=== PATIENT | female | born 1945 | race Caucasian/White ===

== ENCOUNTER 2019-03-13 08:50 | Day surgery (SDC) | payer OTHER, MEDICARE ==
[2019-03-13 08:49] LABS: Urine Appearance CLEAR; Urine Bilirubin NEGATIVE (NEG); Urine Blood TRACE (NEG); Urine Color YELLOW; Urine Glucose NEGATIVE (NEG); Urine Protein NEGATIVE (NEG); Urine Urobilinogen 0.2 mg/dL (0.2-1.0); Urine pH 5.5 (5.0-7.0)
[~2019-03-13 08:50] MED LIST: FENTANYL CITR 100 MCG/2 ML ONE; LIDOCAINE 1% MPF 5 ML VIAL ONE; PROPOFOL 200 MG/20 ML VIAL IV ONE
[2019-03-13 08:57] LABS: Absolute Lymphocytes (CBC) 1.7 K/uL (0.7-4.9); Basophils % 0.4 % (0-1.3); Hematocrit 41.1 % (36.0-45.0); Lymphocytes % 34.7 % (15.3-44.8); MPV 8.5 fL (7.6-11.3); RBC Red Blood Cell Count 4.72 M/uL (3.86-4.86)
[2019-03-13] MEDS ORDERED: Ringers Lactate 1,000 ML IV ONE (08:59)
[2019-03-13] MEDS ORDERED: CEFAZOLIN/SWI 1gm 1 GM/10 ML SYR ONE (08:59)
--- NOTE | 2019-03-13 09:11 | RAD REPORT ---
EXAM DESCRIPTION: RAD - Chest Pa And Lat (2 Views) - 03/13/2019 8:49 am CLINICAL HISTORY: preop Chest pain. COMPARISON: No comparisons FINDINGS: The lungs are clear. The heart is normal in size. No displaced fractures. IMPRESSION: No acute or concerning finding suspected.
--- OUTSIDE RECORDS SUMMARY | 2019-03-13 09:14 | XMS REPORT ---
:1945 Author Organization [employer] Care Team Providers Name Role Phone Ramya Kruger Provider Role Unavailable Allergies No Known Allergies Problems Problem Type Condition Code Onset Dates Condition Status Problem Hypercholesteremia E78.00 Active Problem Benign essential HTN I10 Active Problem Fatigue R53.83 Active Problem Encounter for immunization Z23 Active Problem Hypertensive heart disease without I11.9 Active heart failure Problem Benign head tremor G25.0 Active Problem Infected finger L08.9 Active Problem Asthma J45.909 Active Problem Hypothyroidism E03.9 Active Problem Sleep disorder G47.9 Active Problem Anxiety F41.9 Active Problem Prediabetes R73.03 Active Problem Chronic GERD K21.9 Active Problem Palpitations R00.2 Active Problem Asymptomatic PVCs I49.3 Active Problem Fecal incontinence R15.9 Active Problem Depression with anxiety F41.8 Active Problem Low back pain M54.5 Active Problem Tinnitus H93.19 Active Problem Irritable bowel syndrome without K58.9 Active diarrhea Problem Allergic rhinitis, seasonal J30.2 Active Medications No Known Medications Results No Known Results Summary Purpose [employer]Clinical[employer] Submission
[2019-03-13 09:19] LABS: Urine Bacteria <20 /HPF (<20); Urine Microscopic Reflex ORDER UMIC; Urine RBC NONE SEEN /HPF (NONE SEEN)
[2019-03-13 09:20] LABS: Urine Culture Reflex Order REFLEXED; Urine Mucus LIGHT /HPF (NONE SEEN)
[2019-03-13] MEDS ORDERED: ONDANSETRON 4 MG/2 ML VIAL ONE (09:30)
--- NOTE | 2019-03-13 09:30 | RAD REPORT ---
EXAM DESCRIPTION: RAD - Hand Left 3 View - 03/13/2019 8:49 am CLINICAL HISTORY: preop Finger pain and swelling COMPARISON: No comparisons FINDINGS: Moderate multi joint arthritic changes are noted in the hand. Radiocarpal arthritic change s are present. No acute fracture or dislocation evident.
[2019-03-13] MEDS: MORPHINE 4 MG/ML SYR ONE ×3 (10:12→10:22)
[2019-03-13 10:32] VITALS: O2SAT 98
[2019-03-13 10:48] VITALS: BP 157/81; TEMP 96.7
[2019-03-13] MEDS ORDERED: ONDANSETRON 4 MG (ODT) TAB ONE (11:38)
--- NOTE | 2019-03-13 20:45 | OP ---
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 Procedure: Removal of the nail plate. Anesthesia: General. Procedure In Detail: After satisfactory induction of general anesthesia, the hand was prepped with B etadine scrub, Betadine paint, dry sterile drapes applied in usual manner. The arm was elevated and exsanguinated with an Esmarch. Tourniquet inflated to 250 mmHg and placed on the OR table. A perios teal elevator was used to remove the nail plate. There were no signs of infection. All of that are in the eponychium. She has a history of previous paronychia. Plate was removed, the wound was jet l avaged and irrigated with dilute Betadine solution. Tourniquet released. Dressing of Xeroform, 2 in Dashawn. The patient tolerated the procedure well and returned to recovery. CARLIN/GILMAR Voice ID: [id number] Report ID: [id number]
--- NOTE | 2019-03-17 16:58 | EKG ---
Test Date: 2019-03-13 Test Time: 08:22:10 Rotary Slicing Machine Operator: KELLY MEASUREMENT RESULTS: Intervals: Rate: 72 LA: 170 QRSD: 78 QT: 374 QTc: 409 Reyno: P: 70 LA: 170 QRS: 54 T: 64 INTERPRETIVE STATEMENTS: Sinus rhythm with occasional premature ventricular complexes Otherwise normal ECG No previous ECG available for comparison Electronically Signed On 03-17-19 16:55:52 CDT by Quinten Moore
== END 2019-03-13 12:05 | disposition home or self-care (01) ==
LOC: OR 08:50
PROVIDERS: ATTEND Specialist
PROC: 0HDQXZZ Extraction of Finger Nail, External Approach (ICD-10-PCS; principal; 2019-03-13 09:00)
DX: L03.012 Cellulitis of left finger (principal); I10 Essential (primary) hypertension; E07.9 Disorder of thyroid, unspecified; Z88.3 Allergy status to other anti-infective agents; Z88.6 Allergy status to analgesic agent
CPT/HCPCS: 93005; 87088; 85025; 87086; 36415; 88312; 88304; 88311; 71046; 73130; 11730; J2704; J3010; J0690; J2405; 81003; 81015; 88305

== ENCOUNTER 2021-11-28 21:40 | Emergency (ER) | payer OTHER, MEDICARE ==
--- OUTSIDE RECORDS SUMMARY | 2021-11-28 21:44 | XMS REPORT | Continuity of Care Document ---
:1945 Author Organization [facility] t Address [address] [place] [address] Care Team Providers Name Role Phone ESTELA CAPUTO Primary Care Physician Unavailable Slick Attending Clinician Unavailable Sarah ZARAGOZA Attending Clinician Unavailable AYANA Attending Clinician Unavailable Ayana CIA AGENT Attending Clinician Doctor Unassigned, Name Attending Clinician Unavailable Sarah Zaragoza MD Attending Clinician Only, Test Attending Clinician Unavailable Sarah ZARAGOZA Admitting Clinician Unavailable AYANA Admitting Clinician Unavailable Sarah Zaragoza MD Admitting Clinician Payers Payer Name Policy Type Policy Number Effective Date Expiration Date S waldo MEDICARE PART A \\T\\ [id number] 2009 B 00:00:00 [facility] [id number] 2019 MEDICARE SUPPLEMENT 00:00:00 Problems Condition Condition Condition Status Onset Resolution Last Treating Co mments Source Name Details Category Date Date Treatment Clinician Date No known No known Disease Unive rs active active ity of problems problems [facility] Allergies, Adverse Reactions, Alerts Allergy Allergy Status Severity Reaction(s) Onset Inactive Treating Comm ents Source Name Type Date Date Clinician codine Adverse Active vomiting Common Reaction [facility] PredniSO Adverse Active chest pain Com mon NE Reaction [facility] Ventolin Adverse Active numbness in Co mmon HFA Reaction tongue [facility] Levoflox Adverse Active hives, Common acin Reaction difficulty Spir it swallowing [facility] NO KNOWN Drug Active Univers ALLERGIE Class ity of S [facility] Social History Social Habit Start Date Stop Date Quantity Comments Source Exposure to Not sure University of SARS-CoV-2 [facility] (event) Branch Alcohol intake 2021-06-08 2021-06-08 Ex-drinker [facility] 00:00:00 00:00:00 (finding) [facility] Tobacco use and 2020-02-20 2020-02-20 Never used Universit y of exposure 00:00:00 00:00:00 [facility] Sex Ass[birth year] Universit y of 00:00:00 00:00:00 [facility] Smoking Status Start Date Stop Date Source Never smoker [facility] Medications Ordered Filled Start Stop Current Ordering Indication Dosage Frequency Signature Comments Components Source Medication Medication Date Date Medication? Clinician (SIG) Name Name benzonatate 2020-07 No 100mg 100 mg, U nivers (TESSALON 08-10 Oral, ity of PERLES) 03:30: 03:12 ONCE, 1 [place] capsule 100 00 :00 dose, On Medi jimmy mg Wed Branch 06/08/21 at 2130, CELIA methylpredn 2020-07 No 125mg 125 mg, IV Univers isolone sod 08-10 Piggyback, i ty of succ 03:30: 03:12 ONCE, 1 [place] (SOLU-MEDRO 00 :00 dose, On Medi jimmy L) [facility] Branch injection 06/08/21 at 125 mg 2130, STAT methylPREDN 2020-07 Yes [id number] Take by Univers ISolone 2-08 mouth ity of (MEDROL, 00:00: SEE-INSTRU Chriss as DIMAS,) 4 mg 00 CTIONS. Medica l tablets follow Branch package directions benzonatate 2020-07 Yes [id number] 100mg Take 1 Univers 100 mg 2-08 capsule by ity of capsule 00:00: mouth 3 [place] 00 (three) Medical times Branch daily as needed for Cough. albuterol 2020-07 Yes [id number] 2{puff} Inhale 2 Univers 90 2-08 Puffs ity of mcg/actuati 00:00: every 4 Chriss as on inhaler 00 (four) Medical hours as Branch needed for Wheezing or Shortness of Breath. Levothyroxi 2020-0 Yes Take by Un malachi ne 50 mcg - mouth. ity of capsule 14:23: Medical Branch hydroCHLORO 2020-0 Yes 12.5mg Take 12.5 Univers thiazide 9-17 mg by ity of 12.5 mg 14:23: mouth [place] capsule 01 daily. Medical Branch L.acid/B.bi 2020-0 Yes Take by Un malachi fidum/B.ani 03-18 mouth. ity of mal/FOS 14:23: [place] (PROBIOTIC Medical COMPLEX Branch ORAL) Potassium 2020-0 Yes Take by [facility] ers 99 mg Tab 03-18 mouth. ity of 14:23: [place] [facility] Magnesium 2020-0 Yes Take by [facility] ers 250 mg Tab 03-18 mouth. ity of 14:23: [place] [facility] mv-mn/iron/ 2020-0 Yes Take by Un malachi folic 03-18 mouth. ity of acid/herb 14:23: [place] 01 Medical (VITAMIN D3 Branch COMPLETE ORAL) water for 2019-0 Yes PRN, Univers irrigation 03-18 Starting ity o f irrigation 12:19: Brittanie [place] solution 00 03/18/20 at Medic al 0719, Branch Until Discontinu ed, Routine, Intra-op simethicone 2020-0 Yes PRN, [facility] s (GAS RELIEF 03-18 Starting ity of (SIMETHICON 12:18: Brittanie [place] E)) 40 00 03/18/20 at Medical mg/0.6 mL 0718, Branch drops Until Discontinu ed, Routine, Intra-op lactated 2019-0 2020- No 1000mL at 20 [facility] rs ringers IV 03-18-17 mL/hr, ity of infusion 12:15: 12:15 1,000 mL, Chriss as 1,000 mL 00 :00 IV Medical Infusion, Branch ONCE, 1 dose, Brittanie 03/18/20 at 0715, Routine, DSU Pre-op Levothyroxi 2020-0 Yes Take by Un malachi ne 50 mcg - mouth. ity of capsule 09:23: [place] Medical [facility] hydroCHLORO 2020-0 Yes 12.5mg Take 12.5 Univers thiazide 9-17 mg by ity of 12.5 mg 09:23: mouth [place] capsule 01 daily. Medical Branch L.acid/B.bi 2020-0 Yes Take by Un malachi fidum/B.ani 9-17 mouth. ity of mal/FOS 09:23: [place] (PROBIOTIC 01 Medical COMPLEX Branch ORAL) Potassium 2020-0 Yes Take by Univ ers 99 mg Tab 9-17 mouth. ity of 09:23: [place] [facility] Magnesium 2020-0 Yes Take by Univ ers 250 mg Tab 9-17 mouth. ity of 09:23: [place] Medical [facility] mv-mn/iron/ 2020-0 Yes Take by Un malachi folic 9-17 mouth. ity of acid/herb 09:23: [place] 190 Medical (VITAMIN D3 Branch COMPLETE ORAL) Levothyroxi 2020-0 Yes Take by Un malachi ne 50 mcg 9-17 mouth. ity of capsule 09:23: [place] Medical [facility] hydroCHLORO 2020-0 Yes 12.5mg Take 12.5 Univers thiazide 9-17 mg by ity of 12.5 mg 09:23: mouth [place] capsule 01 daily. Medical Branch L.acid/B.bi 2020-0 Yes Take by Un malachi fidum/B.ani 9-17 mouth. ity of mal/FOS 09:23: [place] (PROBIOTIC 01 Medical COMPLEX Branch ORAL) Potassium 2020-0 Yes Take by Univ ers 99 mg Tab 9-17 mouth. ity of 09:23: [place] Medical [facility] Magnesium 2020-0 Yes Take by Univ ers 250 mg Tab 9-17 mouth. ity of 09:23: [place] [facility] mv-mn/iron/ 2020-0 Yes Take by Un malachi folic 9-17 mouth. ity of acid/herb 09:23: [place] 190 Medical (VITAMIN D3 Branch COMPLETE ORAL) Metronidazo Metronidazo 2020-0 2020- No Ramya 1 tablet Common le le 02-26 [place] [facility] 00:00: 00:00 - CHI 00 :00 [facility] L.acid/B.bi 2020-0 Yes Take by Un malachi fidum/B.ani 8-21 mouth. ity of mal/FOS 13:29: [place] (PROBIOTIC 27 Medical COMPLEX Branch ORAL) Potassium 2020-0 Yes Take by Univ ers 99 mg Tab 8-21 mouth. ity of 13:29: [place] [facility] Magnesium 2020-0 Yes Take by Univ ers 250 mg Tab 8-21 mouth. ity of 13:29: [address] Levothyroxi Yes Take by Un malachi ne 50 mcg 8-21 mouth. ity of capsule 13:29: [address] hydroCHLORO Yes 12.5mg Take 12.5 Univers thiazide 8-21 mg by ity of 12.5 mg 13:29: mouth [place] capsule 27 daily. Medical Branch ProAir HFA ProAir HFA Yes Ramya 1 puff as Common 07-10 [place] needed Spirit 00:00: - CHI 00 [facility] Magnesium Magnesium Yes Ramya as Comm on [place] directed [facility] Potassium Potassium Yes Ramya 1 tablet Common [place] [facility] Probiotic Probiotic Yes Ramya as Comm on [place] directed [facility] Hydrochloro Hydrochloro Yes Ramya TAKE ONE Common thiazide thiazide [place] TABLET BY S pirit MOUTH ONCE - CHI DAILY [facility] Albuterol Albuterol Yes Ramya 3 ml as C ommon Sulfate Sulfate [place] needed [facility] Levothyroxi Levothyroxi Yes Ramya TAKE ONE Common ne Sodium ne Sodium [place] TABLET BY Spirit MOUTH ONCE - CHI DAILY [facility] Vital Signs Vital Name Observation Time Observation Value Comments Source Heart rate 2021-06-09 03:17:00 76 /min [facility] Respiratory rate 2021-06-09 03:17:00 18 /min [facility] Oxygen saturation in 2021-06-09 03:17:00 96 /min [facility] Arterial blood by [facility] Pulse oximetry Branch Systolic blood 2021-06-08 23:20:00 153 mm[Hg] Univer sity of pressure [facility] Diastolic blood 2021-06-08 23:20:00 94 mm[Hg] Unive rsity of pressure [facility] Body temperature 2021-06-08 23:20:00 36.83 Jasmin [facility] Body weight 2021-06-08 23:20:00 61.236 kg [facility] BMI 2021-06-08 23:20:00 24.69 kg/m2 [facility] Systolic blood 2020-03-18 13:48:00 131 mm[Hg] Univer sity of pressure [facility] Diastolic blood 2020-03-18 13:48:00 67 mm[Hg] Unive rsity of [facility] Heart rate 2020-03-18 13:48:00 72 /min [facility] Respiratory rate 2020-03-18 13:48:00 11 /min [facility] Oxygen saturation in 2020-03-18 13:48:00 100 /min [facility] Arterial blood by [facility] Pulse oximetry Branch Body temperature 2020-03-18 13:31:00 36.78 Jasmin [facility] Body height 2020-03-16 15:00:00 157.5 cm [facility] Body weight 2020-03-16 15:00:00 61.236 kg [facility] BMI 2020-03-16 15:00:00 24.69 kg/m2 [facility] Procedures Procedure Date / Time Performing Clinician Source Performed COMP. METABOLIC PANEL 2021-06-09 00:38:00 [facility] ([id number]) [facility] CBC WITH DIFF 2021-06-09 00:38:00 Tree Piña [facility] XR CHEST 2 VW 2021-06-09 00:15:00 Tree Piña [facility] CONSENT/REFUSAL FOR 2021-06-08 22:40:02 Doctor Unassigned, No [facility] NOTICE OF PRIVACY 2021-06-08 22:39:27 Doctor Unassigned, No Univ [facility] PRACTICES Name [facility] COLONOSCOPY (ENDO) 2020-03-18 12:55:46 Ramya Cpauto [facility] Encounters Start End Encounter Admission Attending Care Care Encounter Source Date/Time Date/Time Type Type Clinicians Facility Department ID 2021-07-27 Outpatient ARMINDA Caputo [facility] [id number] Common 11:05:30 Ramya [id number] [facility] 2021-07-27 Outpatient ARMINDA Caputo [facility] [id number] Common 10:59:26 Ramya [id number] [facility] 2021-04-29 Outpatient R KIMBERLY [facility] [id number] Univers 17:46:35 E, MARIO duartey [facility] 2021-04-29 Outpatient R [facility] ME[facility] [id number] Univers 17:46:32 E, MARIO hernández [facility] 2021-06-08 2021-06-08 Emergency X [facility] [id number] Univers 17:20:00 21:19:00 TREE ity [facility] 2021-06-08 2021-06-08 [facility] [id number] Univers 17:20:00 21:19:00 Tree VIRK [id number] i ty of [place] 4.2.7.2.686 [facility] [id number] [facility] 084 Branch 2021-06-08 2021-06-08 Orders Doctor ETTA [id number] Univers 00:00:00 00:00:00 Only Unassigned, ELIJAH [id number] [facility] 4.2.7.2.686 Chriss as [id number] [facility] 009 Branch 2020-04-20 2020-04-20 Outpatient [facility] [id number] Common 00:00:00 00:00:00 [facility] 2020-03-18 2020-03-18 Outpatient R [facility] MECCA [id number] Univers 06:59:00 09:22:00 MARIO Torres o f [facility] 2020-03-18 2020-03-18 [facility] [id number] Univers 06:59:00 09:22:00 Encounter eMario [id number] ity of [place] 4.2.7.2.686 [facility] [id number] [place] [id number] Branch 2020-03-17 2020-03-17 Laboratory Only, Adc Test RUST [id number]. [id number] Univers 08:58:53 09:13:53 Only Mario Zaragoza 350.1.1 3.10 ity of [place] 4.2.7.2.686 [facility] [id number] [address] 2020-03-17 2020-03-17 Outpatient R [facility] [id number] Univers 08:45:00 08:45:00 [id number] ity of [facility] 2020-03-17 2020-03-17 Outpatient R KIMBERLY [facility] [id number] Univers 08:45:00 08:45:00 MARIO Torres f [facility] 2020-02-27 2020-02-27 [facility] [id number] Common 10:00:00 10:00:[address] [facility] 2020-01-19 2020-01-19 [facility] [id number] Common 09:40:00 09:40:[address] [facility] 2020-01-12 2020-01-12 [facility] [id number] Common 09:40:00 09:40:[address] [facility] 2019-12-29 2019-12-29 [facility] [id number] Common 14:00:00 14:00:[address] [facility] 2019-12-04 2019-12-04 [facility] [id number] Common 10:40:00 10:40:[address] [facility] 2019-11-03 2019-11-03 [facility] [id number] Common 11:40:00 11:40:[address] [facility] 2019-10-20 2019-10-20 [facility] [id number] Common 14:20:00 14:20:[address] [facility] 2019-10-20 2019-10-20 [facility] [id number] Common 08:40:00 08:40:[address] [facility] 2019-09-16 2019-09-16 [facility] [id number] Common 11:05:00 11:05:[address] [facility] 2019-08-21 2019-08-21 [facility] [id number] Common 10:00:00 10:00:[address] [facility] 2019-08-05 2019-08-05 [facility] [id number] Common 13:20:00 13:20:[address] [facility] 2019-07-10 2019-07-10 [facility] [id number] Common 14:00:00 14:00:[address] [facility] 2019-06-18 2019-06-18 [facility] [id number] Common 09:53:00 09:53:[address] [facility] 2019-06-17 2019-06-17 [facility] [id number] Common 14:20:00 14:20:[address] [facility] 2019-06-13 2019-06-13 [facility] [id number] Common 14:55:00 14:55:[address] [facility] 2019-04-03 2019-04-03 [facility] [id number] Common 14:00:00 14:00:[address] [facility] 2019-02-26 2019-02-26 [facility] [id number] Common 13:52:00 13:52:00 [facility] 2019-02-12 2019-02-12 [facility] [id number] Common 15:20:00 15:20:[address] [facility] Results Test Description Test Time Test Comments Results Result Comments Source COMP. METABOLIC PANEL (45348) 2021-06-09 01:23:28 Test Item Value Reference Range Interpretation Comme nts NA (test code = 7578589274) 132 mmol/L 135-145 L K (test code = 6512096093) 4.0 mmol/L 3.5-5.0 CL (test code = 0432403770) 98 mmol/L 98-108 CO2 TOTAL (test code = 8953477645) 28 mmol/L 23-31 AGAP (test code = 3979464853) 2-16 BUN (test code = 6397094286) 14 mg/dL 7-23 GLUCOSE (test code = 6207342957) 101 mg/dL 70-110 CREATININE (test code = 0.74 mg/dL 0.50-1.04 0458244631) TOTAL BILI (test code = 0.5 mg/dL 0.1-1.6 5825043347) CALCIUM (test code = 7838367748) 10.2 mg/dL 8.6-10.6 T PROTEIN (test code = 5773093750) 7.1 g/dL 6.3-8.2 ALBUMIN (test code = 5291894302) 4.3 g/dL 3.5-5.0 ALK PHOS (test code = 3518835195) 72 U/L 34-122 ALTv (test code = 1742-6) 28 U/L 5-35 AST(SGOT) (test code = 6973244441) 34 U/L 13-40 eGFR (test code = 1925797009) mL/min/1.73m2 ANIKA (test code = ANIKA) Association of Glomerular Filtration Rate (GFR) and Staging of Kidney Disease* + +-------- + ------+| GFR (mL/min/1.73 m2) ?| With Kidney Damage ?| ?Without Kidney Damage+ +-- + +| ?>90 ?| ?Stage one ?| ? Normal ?+ +------- + -------+| ?60-89 ?| ?Stage two ?| ? Decreased GFR ? + +-------- + ------+| ?30-59 ?| ?Stage three ?| ? Stage three ? + +-------- + ------+| ?15-29 ?| ?Stage four ? | ? Stage four ?+ +------- + -------+| ?<15 (or dialysis) ? ?| ?Stage five ? | ? Stage five ?+ +------- + -------+ *Each stage assumes the associated GFR level has been in effect for at least three months. ?Stages 1 to 5, with or without kidney disease, indicate chronic kidney disease. Notes: Determination of stages one and two (with eGFR >59mL/min/1.73 m2) requires estimation of kidney damage for at least three months as defined by structural or functional abnormalities of the kidney, manifested by either:Pathological abnormalities or Markers of kidney damage (including abnormalities in the composition of the blood or urine or abnormalities in imaging tests). Lab Interpretation (test code = Abnormal 62079-7) [facility] WITH [id number] 01:08:44 Test Item Value Reference Range Interpretation Comments WBC (test code = See_Comment [Automated message] 6590-2) The system sofatutor generated this result transmitted ref erence range: 4.30 - 1 1.10 10*3/?L. The re ference range was not u sed to interpret this result as normal/abnor mal. RBC (test code = See_Comment [Automated message] 299-8) The system sofatutor generated this result transmitted ref erence range: 3.93 - 5 .25 10*6/?L. The re ference range was not u sed to interpret this result as normal/abnor mal. HGB (test code = 13.3 g/dL 11.6-15.0 718-7) HCT (test code = 41.1 % 35.7-45.2 4544-3) MCV (test code = 86.9 fL 80.6-95.5 787-2) MCH (test code = 28.1 pg 25.9-32.8 785-6) MCHC (test code = 32.4 g/dL 31.6-35.1 786-4) RDW-SD (test code 43.1 fL 39.0-49.9 = 78294-4) RDW-CV (test code 13.5 % 12.0-15.5 = 788-0) PLT (test code = See_Comment [Automated message] 557-3) The system whic h generated this result transmitted ref erence range: 166 - 35 8 10*3/?L. The re ference range was not u sed to interpret this result as normal/abnor mal. MPV (test code = 10.1 fL 9.5-12.9 79809-6) NRBC/100 WBC (test See_Comment [Automat ed message] code = 7117431478) The syste m which generated this result transmitted ref erence range: 0.0 - 10 .0 /100 WBCs. The refer ence range was not u sed to interpret this result as normal/abnor mal. NRBC x10^3 (test <0.01 See_Comment [Automated message] code = 1377868037) The syste m which generated this result transmitted ref erence range: 10*3/?L. The reference range was not used to interpr et this result as normal/abnormal . GRAN MAT (NEUT) % 52.3 % (test code = 770-8) IMM GRAN % (test 0.30 % code = 8032131108) LYMPH % (test code 31.0 % = 736-9) MONO % (test code 10.9 % = 5905-5) EOS % (test code = 5.0 % 713-8) BASO % (test code 0.5 % = 706-2) GRAN MAT 3.87 10*3/uL 1.88-7.09 x10^3(ANC) (test code = 9597692799) IMM GRAN x10^3 <0.03 0.00-0.06 (test code = 6701715274) LYMPH x10^3 (test 2.30 10*3/uL 1.32-3.29 code = 731-0) MONO x10^3 (test 0.81 10*3/uL 0.33-0.92 code = 742-7) EOS x10^3 (test 0.37 10*3/uL 0.03-0.39 code = 711-2) BASO x10^3 (test 0.04 10*3/uL 0.01-0.07 code = 704-7) [facility]"
[2021-11-29] MEDS ORDERED: NA CHLORIDE 0.9% 1,000 ML ONE (00:53)
[2021-11-29] MEDS ORDERED: ONDANSETRON 4 MG/2 ML VIAL ONE (00:53)
[2021-11-29 01:10] LABS: Absolute Lymphocytes (CBC) 0.4 K/uL (0.7-4.9); Hematocrit 42.3 % (36.0-45.0); Lymphocytes % 3.3 % (15.3-44.8); MPV 8.6 fL (7.6-11.3); RBC Red Blood Cell Count 5.01 M/uL (3.86-4.86)
[2021-11-29 01:35] LABS: Albumin 3.8 g/dL (3.4-5.0); Bilirubin Total 0.5 mg/dL (0.2-1.0); Potassium 3.5 mmol/L (3.5-5.1); Protein, Total 7.4 g/dL (6.4-8.2)
[2021-11-29 02:13] LABS: Urine Blood 1+ (Negative); Urine Glucose Negative (Negative); Urine Protein Negative (Negative); Urine Specific Gravity >=1.030 (1.005-1.030); Urine pH 5.5 (5.0-7.0)
[2021-11-29 03:37] LABS: Urine Bacteria 20-50 /HPF (<20); Urine Mucus 2+ /HPF (NONE SEEN); Urine RBC <5 /HPF (NONE SEEN)
[2021-11-29] MEDS ORDERED: CEFTRIAXONE 1000 MG/VIAL ONE (03:56)
[2021-11-29] MEDS ORDERED: NA CHLORIDE 0.9% 50 ML ONE (03:56)
--- NOTE | 2021-11-29 04:16 | EDPHYS ---
Physician Documentation [facility] Name: Tamar Borja Age: 76 yrs Sex: Female : 1945 Arrival Date: 11/28/2021 Time: 21:43 Bed 4 Private MD: ED Physician Eduardo Acuna HPI: 11/28 23:50 This 76 yrs old Female presents to ER via Wheelchair with complaints of Doesn't Feel mh7 Right. 23:50 The patient presents to the emergency department with nausea, that is moderate, mh7 vomiting, that is intermittent, described as clear fluid, diarrhea, that is intermittent. Onset: The symptoms/episode began/occurred today, at 12:00. Possible causes: bad food exposure, possibly bad home food. The symptoms are aggravated by nothing. The symptoms are alleviated by nothing. Associated signs and symptoms: Pertinent negatives: abdominal pain, anorexia, belching, constipation, dysuria, fever, flatulence, GI bleeding, hematuria, vaginal discharge. Severity of symptoms: At their worst the symptoms were moderate today, in the emergency department the symptoms have improved moderately. Historical: - Allergies: 22:17 No Known Allergies; jb4 - PMHx: 22:17 Asthma; Bronchitis; jb4 - PSHx: 22:17 breast augmentation; jb4 - Immunization history:: Adult Immunizations up to date. - Social history:: Smoking status: Patient denies any tobacco usage or history of. ROS: 23:50 Constitutional: Negative for fever, chills, and weight loss, Eyes: Negative for injury, mh7 pain, redness, and discharge, ENT: Negative for injury, pain, and discharge, Neck: Negative for injury, pain, and swelling, Cardiovascular: Negative for chest pain, palpitations, and edema, Respiratory: Negative for shortness of breath, cough, wheezing, and pleuritic chest pain, Back: Negative for injury and pain, : Negative for injury, bleeding, discharge, and swelling, MS/Extremity: Negative for injury and deformity, Skin: Negative for injury, rash, and discoloration, Neuro: Negative for headache, weakness, numbness, tingling, and seizure, Psych: Negative for depression, anxiety, suicide ideation, homicidal ideation, and hallucinations, Allergy/Immunology: Negative for hives, rash, and allergies, Endocrine: Negative for neck swelling, polydipsia, polyuria, polyphagia, and marked weight changes, Hematologic/Lymphatic: Negative for swollen nodes, abnormal bleeding, and unusual bruising. Exam: 23:50 Head/Face: Normocephalic, atraumatic. Eyes: Pupils equal round and reactive to light, mh7 extra-ocular motions intact. Lids and lashes normal. Conjunctiva and sclera are non-icteric and not injected. Cornea within normal limits. Periorbital areas with no swelling, redness, or edema. Neck: Trachea midline, no thyromegaly or masses palpated, and no cervical lymphadenopathy. Supple, full range of motion without nuchal rigidity, or vertebral point tenderness. No Meningismus. Chest/axilla: Normal chest wall appearance and motion. Nontender with no deformity. No lesions are appreciated. Cardiovascular: Regular rate and rhythm with a normal S1 and S2. No gallops, murmurs, or rubs. Normal PMI, no JVD. No pulse deficits. Respiratory: Lungs have equal breath sounds bilaterally, clear to auscultation and percussion. No rales, rhonchi or wheezes noted. No increased work of breathing, no retractions or nasal flaring. Abdomen/GI: Soft, non-tender, with normal bowel sounds. No distension or tympany. No guarding or rebound. No evidence of tenderness throughout. Back: No spinal tenderness. No costovertebral tenderness. Full range of motion. Skin: Warm, dry with normal turgor. Normal color with no rashes, no lesions, and no evidence of cellulitis. MS/ Extremity: Pulses equal, no cyanosis. Neurovascular intact. Full, normal range of motion. Neuro: Awake and alert, GCS 15, oriented to person, place, time, and situation. Cranial nerves II-XII grossly intact. Motor strength 5/5 in all extremities. Sensory grossly intact. Cerebellar exam normal. Normal gait. Psych: Awake, alert, with orientation to person, place and time. Behavior, mood, and affect are within normal limits. 23:50 Constitutional: The patient appears in no acute distress, alert, awake, uncomfortable. Vital Signs: 22:17 BP 141 / 71; Pulse 92; Resp 16; Temp 98.5(TE); Pulse Ox 97% on R/A; Weight 57.15 kg (R);jb4 11/29 00:00 BP 154 / 95; Pulse 96; Resp 17; Pulse Ox 100% on R/A; sm5 02:46 BP 125 / 55; Pulse 92; Resp 18; Pulse Ox 99% on R/A; sm5 05:37 BP 128 / 64; Pulse 94; Resp 18; Pulse Ox 97% on R/A; sm5 MDM: 04:13 Differential diagnosis: diverticulitis, viral gastroenteritis, gastroenteritis. Data [facility] reviewed: vital signs, nurses notes, old medical records, lab test result(s), radiologic studies, CT scan. Data interpreted: Pulse oximetry: on room air is 99 %. Interpretation: normal. Counseling: I had a detailed discussion with the patient and/or guardian regarding: the historical points, exam findings, and any diagnostic results supporting the discharge/admit diagnosis, lab results, radiology results, the need for outpatient follow up, to return to the emergency department if symptoms worsen or persist or if there are any questions or concerns that arise at home. Response to treatment: the patient's symptoms have resolved after treatment, the patient's blood pressure is in an acceptable range, mental status has returned to baseline, the patient no longer shows bradycardia, the patient is not short of breath, the patient is not tachycardic, the patient's pain is gone, the patient's temperature has normalized, the patient is now symptom free, patient is well hydrated. 04:16 Patient medically screened. [facility] 11/29 00:06 Order name: CBC with Diff; Complete Time: 03:22 [facility] 11/29 00:06 Order name: CMP; Complete Time: 03:22 [facility] 11/29 00:06 Order name: Lipase; Complete Time: 03:22 [facility] 11/29 02:13 Order name: Urine Microscopic Only; Complete Time: 03:38 lp1 11/29 02:14 Order name: Urine Dipstick-Ancillary; Complete Time: 03:22 [facility] [place] 11/29 03:39 Order name: Urine Culture [facility] [place] 11/29 00:47 Order name: CT Abd/Pelvis - Without Contrast [facility] 11/29 00:52 Order name: Abdomen [facility] [place] 11/29 04:22 Order name: EKG; Complete Time: 04:22 [facility] 11/29 00:06 Order name: IV Saline Lock; Complete Time: 00:53 [facility] 11/29 00:06 Order name: Labs collected and sent; Complete Time: 00:54 [facility] 11/29 00:06 Order name: Urine Dipstick-Ancillary (obtain specimen); Complete Time: 02:23 [facility] 11/29 04:22 Order name: EKG - Nurse/Tech; Complete Time: 05:34 [facility] Administered Medications: 00:54 Drug: NS 0.9% 1000 ml Route: IV; Rate: 1 bolus; Site: left antecubital; ke1 02:23 Follow up: IV Status: Completed infusion; IV Intake: 1000ml 5 00:54 Not Given (not available MD notified): Pepcid (famotidine) 20 mg IVP once; dilute with ke1 10 mL 0.9% NaCl; give over 2 minutes 00:54 Drug: Zofran (Ondansetron) 4 mg Route: IVP; Site: left antecubital; ke1 03:57 Drug: Rocephin (cefTRIAXone) 1 grams Route: IV; Rate: per protocol; Site: left sm5 antecubital; Disposition Summary: 11/29/21 05:32 Discharge Ordered Location: Home(11/29/21 05:32) [facility] Problem: new(11/29/21 05:32) [facility] Symptoms: have improved(11/29/21 05:32) [facility] Condition: Stable(11/29/21 05:32) [facility] Diagnosis - Nausea with vomiting, unspecified(11/29/21 05:32) mh7 - Diarrhea, unspecified(11/29/21 05:32) 7 - UTI/ Urinary tract infection, site not specified(11/29/21 05:32) [facility] Followup: [facility] - With: Private Physician - When: 1 - 2 days - Reason: Worsening of condition, Recheck today's complaints, Continuance of care, Re-evaluation by your physician Discharge Instructions: - Discharge Summary Sheet [facility] - Diarrhea, Adult mh7 - Nausea and Vomiting, Adult, [id number] 7 - Urinary Tract Infection, Adult, [id number] [facility] Forms: - Medication Reconciliation Form [facility] - Thank You Letter [facility] - Antibiotic Education [facility] - Prescription Opioid Use [facility] Prescriptions: - ondansetron 4 mg Oral tablet,disintegrating - place 1 tablet by TRANSLINGUAL route every 8 hours As needed; 10 tablet; mh7 Refills: 0, Product Selection Permitted - Cephalexin 500 mg Oral Capsule - take 1 capsule by ORAL route every 12 hours for 7 days; 14 capsule; Refills: 0, mh7 Product Selection Permitted - Flagyl 500 mg Oral Tablet - take 1 tablet by ORAL route every 8 hours for 7 days; 21 tablet; Refills: 0, mh7 Product Selection Permitted - dicyclomine 10 mg Oral Capsule - take 1 capsule by ORAL route 4 times per day As needed; 20 capsule; Refills: 0, mh7 Product Selection Permitted Signatures: Dispatcher [employer] Parker Lima, RN RN jb4 Eduardo Acuna MD MD mh7 Clarice Oliver RN RN sm5 Shon Higgins RN RN ke1 eLslie Echols PA PA sb3 Corrections: (The following items were deleted from the chart) 04: 04:16 Home mh7 mh7 04:21 04:16 new mh7 mh7 04:21 04:16 have improved mh7 mh7 04:21 04:16 Stable mh7 mh7 04:21 04:16 Nausea with vomiting, unspecified mh7 mh7 04:21 04:16 Diarrhea, unspecified mh7 mh7 04:21 04:16 UTI/ Urinary tract infection, site not specified mh7 mh7
--- NOTE | 2021-11-29 04:16 | ER ---
Nurse's Notes [facility] Name: Tamar Borja Age: 76 yrs Sex: Female : 1945 Arrival Date: 11/28/2021 Time: 21:43 Bed 4 Private MD: Diagnosis: Nausea with vomiting, unspecified;Diarrhea, unspecified;UTI/ Urinary tract infection, site not specified Presentation: 11/28 22:16 Chief complaint: Patient states: I have been vomiting, having diarrhea, feeling weak, jb4 feel like my heart if beating irregularly. Coronavirus screen: At this time, the client does not indicate any symptoms associated with coronavirus-19. Ebola Screen: No symptoms or risks identified at this time. 22:16 Method Of Arrival: Wheelchair jb4 22:16 Initial Sepsis Screen: Does the patient meet any 2 criteria? Altered Mental Status. HR jb4 > 90 bpm. Yes Does the patient have a suspected source of infection? No. Patient's initial sepsis screen is negative. Risk Assessment: Do you want to hurt yourself or someone else? Patient reports no desire to harm self or others. Onset of symptoms was November 28, 2021. Transition of care: patient was not received from another setting of care. 22:16 Acuity: BING 3 jb4 Historical: - Allergies: 22:17 No Known Allergies; jb4 - PMHx: 22:17 Asthma; Bronchitis; jb4 - PSHx: 22:17 breast augmentation; jb4 - Immunization history:: Adult Immunizations up to date. - Social history:: Smoking status: Patient denies any tobacco usage or history of. Screenin/31 02:46 Abuse screen: Denies threats or abuse. Denies injuries from another. Nutritional sm5 screening: No deficits noted. Tuberculosis screening: No symptoms or risk factors identified. Fall Risk None identified. Assessment: 00:30 General: Appears in no apparent distress. Behavior is cooperative. Pain: Complains of sm5 pain in abdomen. Neuro: No deficits noted. Level of Consciousness is awake, alert, obeys commands, Oriented to person, place, time, situation. Cardiovascular: No deficits noted. Capillary refill < 3 seconds Patient's skin is warm and dry. Respiratory: No deficits noted. Airway is patent Trachea midline Respiratory effort is even, unlabored. GI: Reports diarrhea, nausea, vomiting. Vital Signs: 11/28 22:17 BP 141 / 71; Pulse 92; Resp 16; Temp 98.5(TE); Pulse Ox 97% on R/A; Weight 57.15 kg (R);jb4 11/29 00:00 BP 154 / 95; Pulse 96; Resp 17; Pulse Ox 100% on R/A; sm5 02:46 BP 125 / 55; Pulse 92; Resp 18; Pulse Ox 99% on R/A; sm5 05:37 BP 128 / 64; Pulse 94; Resp 18; Pulse Ox 97% on R/A; 5 ED Course: 11/28 21:43 Patient arrived in ED. ja2 22:17 Arm band placed on right wrist. jb4 22:28 Triage completed. 4 22:30 Clarice Oliver, ANA is Primary Nurse. 5 22:39 Eduardo Acuna MD is Attending Physician. [facility] 11/29 00:53 Inserted saline lock: 20 gauge in left antecubital area, using aseptic technique. ke1 01:58 Abdomen In Process Unspecified. EDMS 02:23 Urine Microscopic Only Sent. 5 02:46 Patient has correct armband on for positive identification. Bed in low position. Call [facility] light in reach. Side rails up X2. 05:52 No provider procedures requiring assistance completed. IV discontinued. ke1 Administered Medications: 00:54 Drug: NS 0.9% 1000 ml Route: IV; Rate: 1 bolus; Site: left antecubital; ke1 02:23 Follow up: IV Status: Completed infusion; IV Intake: 1000ml [facility] 00:54 Not Given (not available MD notified): Pepcid (famotidine) 20 mg IVP once; dilute with ke1 10 mL 0.9% NaCl; give over 2 minutes 00:54 Drug: Zofran (Ondansetron) 4 mg Route: IVP; Site: left antecubital; ke1 03:57 Drug: Rocephin (cefTRIAXone) 1 grams Route: IV; Rate: per protocol; Site: left 5 antecubital; Medication: 05:52 VIS not applicable for this client. ke1 Intake: 02:23 IV: 1000ml; Total: 1000ml. [facility] Outcome: 04:16 Discharge ordered by . [facility] 05:32 Discharge ordered by . [facility] 05:52 Discharged to home via wheelchair. ke1 05:52 Condition: good 05:52 Discharge instructions given to patient. 05:52 Patient left the ED. ke1 Addendum: 12/03/2021 16:15 Addendum: Culture Results: Positive urine culture. Phone call Attempt #1 Pt states that s s she is much better. No changes to treatment as instructed by TAYLOR Barrios. Signatures: Dispatcher [employer] EDKatiana Reyes RN RN Parker Hardy RN RN jb4 Eduardo Acuna MD MD mh7 Shaneka Duarte Sarah, RN RN sm5 Shon Higgins RN RN ke1
[2021-11-29 05:59] VITALS: TEMP 98.5
[2021-11-29 06:03] VITALS: BP 128/64; O2SAT 97
--- NOTE | 2021-11-29 13:50 | RAD REPORT ---
EXAM DESCRIPTION: CT - Abdomen Pelvis Wo Contrast - 11/29/2021 6:39 am CLINICAL HISTORY: The patient is 76 years old and is Female; Diarrhea TECHNIQUE: Axial computed tomography images of the abdomen and pelvis without intravenous contrast. Sagittal and coronal reformatted images were created and reviewed. This CT exam was performed usi ng one or more of the following dose reduction techniques: automated exposure control, adjustment o f the mA and/or kV according to patient size, and/or use of iterative reconstruction technique. COMPARISON: No relevant prior studies available. FINDINGS: LUNG BASES: Unremarkable. No mass. No consolidation. MEDIASTINUM: A small hiatal hernia is present. ABDOMEN: LIVER: Homogeneous without focal mass. GALLBLADDER AND BILE DUCTS: No calcified stones. No ductal dilation. PANCREAS: Unremarkable. No ductal dilation. SPLEEN: Unremarkable. ADRENALS: Unremarkable. No mass. KIDNEYS AND URETERS: A right extrarenal pelvis is present. There is no hydronephrosis or hydrour eter of either kidney. No obstructing renal or ureteral calculus is seen. STOMACH AND BOWEL: The stomach is minimally distended with fluid and air. The small bowel is rel atively normal in caliber. Minimal stool is present throughout colon. A few distal colonic diverticul a are noted without surrounding inflammation. There is no mucosal thickening or evidence of obstructi on. PELVIS: APPENDIX: The appendix is surgically absent. BLADDER: The bladder is not well distended. REPRODUCTIVE: Unremarkable as visualized. ABDOMEN and PELVIS: INTRAPERITONEAL SPACE: Unremarkable. No free air. No significant fluid collection. BONES/JOINTS: Multilevel degenerative change of the spine is present. SOFT TISSUES: The soft tissues are normal. VASCULATURE: Multiple calcified phleboliths are present within the pelvis. No abdominal aortic aneurysm. LYMPH NODES: Unremarkable. No enlarged lymph nodes. IMPRESSION: Distal colonic diverticulosis. No bowel obstruction. Electronically signed by: Evangelina Dong MD 11/29/2021 2:13 AM CDT Due to temporary technical issues with the PACS/Fluency reporting system, reports are being signed by the in house radiologist without review as a courtesy to ensure prompt reporting. The interpreting r adiologist is fully responsible for the content of the report.
--- NOTE | 2021-11-30 07:53 | EKG ---
Test Date: 2021-11-29 Test Time: 04:48:19 [employer]ized [employer] Lieutenant: ALYSE MEASUREMENT RESULTS: Intervals: Rate: 95 DC: 216 QRSD: 70 QT: 376 QTc: 472 Clark: P: 71 DC: 216 QRS: 64 T: 58 INTERPRETIVE STATEMENTS: Sinus rhythm with 1st degree AV block Nonspecific ST abnormality Abnormal ECG Compared to ECG 03/13/2019 08:22:10 First degree AV block now present ST (T wave) deviation now present Ventricular premature complex(es) no longer present Electronically Signed On 11-30-21 07:50:36 CDT by Quinten Moore
== END 2021-11-29 05:52 | disposition home or self-care (01) ==
LOC: ER 21:40
DX: N39.0 Urinary tract infection, site not specified (principal); R19.7 Diarrhea, unspecified; Z98.82 Breast implant status
CPT/HCPCS: 96361; 93005; 87088; 85025; 87086; 36415; 87077; 87186; 83690; 80053; 74176; 96375; 96374; 99284; J7030; J2405; 81003; 81015

== ENCOUNTER 2022-05-07 20:43 | Emergency (ER) | payer OTHER, MEDICARE ==
--- OUTSIDE RECORDS SUMMARY | 2022-05-07 20:47 | XMS REPORT | Continuity of Care Document ---
:1945 Author Organization [facility] t Address [address] [place] [address] [place] [address] Care Team Providers Name Role Phone RAMYA CAPUTO Primary Care Physician Unavailable Ramya Caputo Attending Clinician Unavailable MARIO GONZALEZ Attending Clinician Unavailable Dawit Figueroa Attending Clinician TREE PIÑA Attending Clinician Unavailable Tree Gonzalez Attending Clinician Doctor Unassigned, [place] Attending Clinician Unavailable Mario Gonzalez MD Attending Clinician Only, Adc Test Attending Clinician Unavailable MARIO GONZALEZ Admitting Clinician Unavailable TREE PIÑA Admitting Clinician Unavailable Mario Gonzalez MD Admitting Clinician Payers Payer Name Policy Type Policy Number Effective Date Expiration Date S waldo MEDICARE PART A [id number] 2009 \\T\\ B 00:00:00 [place] [id number] 2019 HEALTHCARE 00:00:00 MEDICARE SUPPLEMENT AARP [id number] [facility] MEDICARE NOVITAS [id number] [facility] Problems Condition Condition Condition Status Onset Resolution Last Treating Co mments Source Name Details Category Date Date Treatment Clinician Date Seasonal Allergic Problem Active Commo n allergic rhinitis, Spiri t rhinitis seasonal - [facility] Bowel Fecal Problem Active Common incontinen incontinen Sp xenia ce ce - [facility] 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 Spir it sterolemia - [facility] Fatigue Fatigue Problem Active [facility] No known No known Disease Unive rs active active ity of problems problems [facility] [id number] Depression Problem Active Co mmon with Spirit anxiety [facility] [id number] Anxiety Problem Active [facility] Spirit [facility] [id number] Sleep Problem Active Common disorder [facility] [id number] Benign Problem Active Common head Spirit tremor [facility] [id number] Hypochondr Problem Active Com mon iacal Spirit disorder [facility] Essential Benign Problem Active Common hypertensi essential Spi rit on HTN [facility] [id number] Palpitatio Problem Active Com mon ns [facility] [id number] Eczema, Problem Active Common unspecifie Spirit d type [facility] [id number] Acute Problem Active Common cystitis [facility] without [facility] hematuria [facility] [id number] Moderate Problem Active Comm on persistent Spirit asthma - [facility] with [facility] asthmaticu Med[facility] Center [id number] Prediabete Problem Active Co mmon s Spirit [facility] [id number] Asymptomat Problem Active Com mon ic PVCs [facility] Bronchitis Bronchiti Problem Resolve 2022-01-23 Memoria co-occurre s d 03:06:57 l nt with co-occurre Veronica nn wheeze nt with wheeze Resolved Problem 01/23/2022 [facility] Asthma Asthma Problem Active 2022-04-30 Surinder eloy (disorder) (disorder) 21:48:50 l Active [place] Problem 04/30/2022 [facility] Essential Essential Problem Active 2022-04-30 Memoria tremor tremor 21:48:50 l (disorder) (disorder) He rmann Active Problem 04/30/2022 [facility] Hypertensi Hypertens Problem Active 2022-04-30 Memoria ve mindy 21:48:50 l disorder, disorder, Herm lopez systemic systemic arterial arterial (disorder) (disorder) Active Problem 04/30/2022 controlled with medication [facility] Hypothyroi Hypothyro Problem Active 2022-04-30 Memoria dism idism 21:48:50 l (disorder) (disorder) He rmann Active Problem 04/30/2022 controlled with medication [facility] Irritable Irritable Problem Active 2022-04-30 Memoria colon colon 21:48:50 l (disorder) (disorder) He rmann Active Problem 04/30/2022 controlled with medication [facility] Tremor Tremor Problem Active 2022-04-30 Surinder eloy (finding) (finding) 21:48:50 l Active [place] Problem 04/30/2022 [facility] Allergies, Adverse Reactions, Alerts Allergy Allergy Status Severity Reaction(s) Onset Inactive Treating Comm ents Source Name Type Date Date Clinician Food Food Active Memoria Chocolat Chocolat l e e Juan Miguel Food Food Active Memoria Tomatoes Tomatoes l Juan Miguel NO KNOWN Drug Active Univers ALLERGIE Class ity of S [facility] levoflox levoflox Active hives, Common acin acin difficulty Spirit swallowing [facility] albutero albutero Active numbness in C ommon l l tongue Spirit [facility] Social History Social Habit Start Date Stop Date Quantity Comments Source Exposure to Not sure [facility] SARS-CoV-2 [facility] (event) Branch History of Never Smoker Common Spiri t - Tobacco Use [facility] Sex Assigned At Common Sp xenia - [facility] Alcohol intake 2021-06-08 2021-06-08 Ex-drinker University 00:00:00 00:00:00 (finding) [facility] Tobacco use and 2020-02-20 2020-02-20 Never used Universit y of exposure 00:00:00 00:00:00 [facility] Smoking Status Start Date Stop Date Source Tobacco smoking status [facility] Never Smoker [facility] Medications Ordered Filled Start Stop Current Ordering Indication Dosage Frequency Signature Comments Components Source Medication Medication Date Date Medication? Clinician (SIG) Name Name Euthyrox Yes TAKE 1 Memoria 100 mcg 7-22 TABLET BY l (0.1 mg) 14:59: MOUTH IN Veronica nn oral tablet 00 THE MORNING hydrochloro Yes TAKE 1 Surinder eloy thiazide 6-22 TABLET BY l 12.5 mg 15:05: MOUTH ONCE Herm lopez oral tablet 00 DAILY IN THE MORNING valsartan Yes TAKE 1 Memori a 40 mg oral 6-22 TABLET BY l tablet 15:05: MOUTH ONCE Veronica nn 00 DAILY IN THE MORNING dicyclomine Yes TAKE 1 Surinder eloy 10 mg oral 6-22 CAPSULE BY l capsule 15:05: MOUTH 4 [place] 00 TIMES DAILY NEEDED levothyroxi Yes 50 Memori a ne 6-22 microgram, l 15:05: Daily, 0 Juan Miguel 00 Refill(s) benzonatate 2020-07 No 100mg 100 mg, U nivers (TESSALON 08-10 Oral, ity of PERLES) 03:30: 03:12 ONCE, 1 [place] capsule 100 00 :00 dose, On Medi jimmy mg Wed Branch 06/08/21 at 2130, CELIA methylpredn 2020-07 No 125mg 125 mg, IV Univers isolone sod 08-10 Piggyback, i ty of succ 03:30: 03:12 ONCE, 1 [place] (SOLU-MEDRO 00 :00 dose, On Medi jimmy L) [facility] Branch injection 06/08/21 at 125 mg 2130, STAT methylPREDN 2020-07 Yes [id number] Take by Univers ISolone 2-08 mouth ity of (MEDROL, 00:00: SEE-INSTRU Chriss as DIMAS,) 4 mg 00 CTIONS. Medica l tablets follow Branch package directions benzonatate 2020-07 Yes [id number] 100mg Take 1 Univers 100 mg 2-08 capsule by ity of capsule 00:00: mouth 3 [place] 00 (three) Medical times Branch daily as needed for Cough. albuterol 2020-07 Yes [id number] 2{puff} Inhale 2 Univers 90 2-08 Puffs ity of mcg/actuati 00:00: every 4 Chriss as on inhaler 00 (four) Medical hours as Branch needed for Wheezing or Shortness of Breath. Levothyroxi Yes Take by Uni vers ne 50 mcg 9-17 mouth. ity of capsule 14:23: [place] [facility] hydroCHLORO Yes 12.5mg Take 12.5 Univers thiazide 9-17 mg by ity of 12.5 mg 14:23: mouth [place] capsule 01 daily. Medical Branch L.acid/B.bi 2020-0 Yes Take by Uni vers fidum/B.ani 03-18 mouth. ity of mal/FOS 14:23: [place] (PROBIOTIC Medical COMPLEX Branch ORAL) Potassium 2020-0 Yes Take by Unive rs 99 mg Tab - mouth. ity of 14:23: [place] [facility] Magnesium 2020-0 Yes Take by Unive rs 250 mg Tab 03-18 mouth. ity of 14:23: [place] [facility] mv-mn/iron/ 2020-0 Yes Take by Uni vers folic 03-18 mouth. ity of acid/herb 14:23: [place] [id number] 01 Medical (VITAMIN D3 Branch COMPLETE ORAL) water for 2020-0 Yes PRN, Univers irrigation 03-18 Starting ity o f irrigation 12:19: Brittanie [place] solution 00 03/18/20 at Medic al 0719, Branch Until Discontinu ed, Routine, Intra-op simethicone 2020-0 Yes PRN, Univer s (GAS RELIEF 03-18 Starting ity of (SIMETHICON 12:18: Brittanie [place] E)) 40 00 03/18/20 at Medical mg/0.6 mL 0718, Branch drops Until Discontinu ed, Routine, Intra-op lactated 2020-0 2020- No 1000mL at 20 [facility] rs ringers IV 03-18 09- mL/hr, ity of infusion 12:15: 12:15 1,000 mL, Chriss as 1,000 mL 00 :00 IV Medical Infusion, Branch ONCE, 1 dose, Brittanie 03/18/20 at 0715, Routine, [facility] Pre-op Levothyroxi 2020-0 Yes Take by Uni vers ne 50 mcg 03-18 mouth. ity of capsule 09:23: [place] [facility] hydroCHLORO 2020-0 Yes 12.5mg Take 12.5 Univers thiazide 9-17 mg by ity of 12.5 mg 09:23: mouth [place] capsule 01 daily. Medical Branch L.acid/B.bi 2020-0 Yes Take by Uni vers fidum/B.ani 03-18 mouth. ity of mal/FOS 09:23: [place] (PROBIOTIC Medical COMPLEX Branch ORAL) Potassium 2020-0 Yes Take by Unive rs 99 mg Tab - mouth. ity of 09:23: [place] [facility] Magnesium 2020-0 Yes Take by Unive rs 250 mg Tab 9-17 mouth. ity of 09:23: [place] [facility] mv-mn/iron/ 2020-0 Yes Take by Uni vers folic 9-17 mouth. ity of acid/herb 09:23: [place] 190 Medical (VITAMIN D3 Branch COMPLETE ORAL) Levothyroxi 2020-0 Yes Take by Uni vers ne 50 mcg 9-17 mouth. ity of capsule 09:23: [place] [facility] hydroCHLORO 2020-0 Yes 12.5mg Take 12.5 Univers thiazide 9-17 mg by ity of 12.5 mg 09:23: mouth [place] capsule 01 daily. Medical Branch L.acid/B.bi 2020-0 Yes Take by Uni vers fidum/B.ani 9-17 mouth. ity of mal/FOS 09:23: [place] (PROBIOTIC 01 Medical COMPLEX Branch ORAL) Potassium 2020-0 Yes Take by Unive rs 99 mg Tab 9-17 mouth. ity of 09:23: [place] [facility] Magnesium 2020-0 Yes Take by Unive rs 250 mg Tab 9-17 mouth. ity of 09:23: [place] [facility] mv-mn/iron/ 2020-0 Yes Take by Uni vers folic 9-17 mouth. ity of acid/herb 09:23: [place] 190 Medical (VITAMIN D3 Branch COMPLETE ORAL) Metronidazo Metronidazo 2020-0 2020- No Ramya 1 tablet Common deann zacarias [id number] [place] Spirit 00:00: 00:00 - [facility] 00 :00 [facility] L.acid/B.bi 2020-0 Yes Take by Uni vers fidum/B.ani 8-21 mouth. ity of mal/FOS 13:29: [place] (PROBIOTIC 27 Medical COMPLEX Branch ORAL) Potassium 2020-0 Yes Take by Unive rs 99 mg Tab 8-21 mouth. ity of 13:29: [place] [facility] Magnesium 2020-0 Yes Take by Unive rs 250 mg Tab 8-21 mouth. ity of 13:29: [place] [address] Medical Branch Levothyroxi 2020-0 Yes Take by Uni vers ne 50 mcg 8-21 mouth. ity of capsule 13:29: [place] [facility] Branch hydroCHLORO 2020-0 Yes 12.5mg Take 12.5 Univers thiazide 8-21 mg by ity of 12.5 mg 13:29: mouth [place] capsule 27 daily. Medical Branch ProAir HFA ProAir HFA Yes Ramya 1 puff as Common 1-09 [place] needed Spirit 00:00: - [facility] 00 [facility] ProAir HFA ProAir HFA No 1{puff_ 6xD ProAir HFA 108 (90 108 (90 1-09 as_need 108 (90 Base) Base) 00:00: ed} Base) MCG/ACT MCG/ACT 00 MCG/ACT Magnesium Magnesium Yes Ramya as Comm on [place] directed [facility] Potassium Potassium Yes Ramya 1 tablet Common Wilkinson [facility] Probiotic Probiotic Yes Ramya as Comm on [place] directed [facility] Hydrochloro Hydrochloro Yes Ramya TAKE ONE Common thiazide thiazide [place] TABLET BY S pirit MOUTH ONCE - [facility] DAILY [facility] Albuterol Albuterol Yes Ramya 3 ml as C ommon Sulfate Sulfate [place] needed [facility] Levothyroxi Levothyroxi Yes Ramya TAKE ONE Common ne Sodium ne Sodium [place] TABLET BY Spirit MOUTH ONCE - [facility] DAILY [facility] Potassium Potassium No 1{table QD Potassium 610 MG 610 MG t} 610 MG Probiotic - Probiotic - No Probiotic - Levothyroxi Levothyroxi No QD Levothyrox ne Sodium ne Sodium ine Sodium 50 MCG 50 MCG 50 MCG Albuterol Albuterol No 3{ml_as TID Albuterol Sulfate Sulfate _needed Sulfate (2.5 (2.5 } (2.5 MG/3ML) MG/3ML) MG/3ML) 0.083% 0.083% 0.083% Hydrochloro Hydrochloro No Hydrochlor thiazide thiazide othiazide 25MG 25MG 25MG Magnesium Magnesium No Magnesium 400 MG 400 MG 400 MG Immunizations Ordered Immunization Filled Immunization Date Status Commen ts Source Name Name Dexamethasone Dexamethasone 2019-10-20 Completed Common S pirit 15:29:00 [facility] Kenalog Kenalog 2019-10-20 Completed [facility] (Triamcinolone) (Triamcinolone) 15:26:00 [facility] Kenalog Kenalog 2018-10-24 Completed [facility] (Triamcinolone) (Triamcinolone) 16:45:00 [facility] Dexamethasone Dexamethasone 2018-10-24 Completed Common S pirit 16:44:00 - [facility] Kenalog Kenalog 2018-04-12 Completed [facility] (Triamcinolone) (Triamcinolone) 15:54:00 - I [facility] Dexamethasone Dexamethasone 2018-04-12 Completed Common S pirit 15:53:00 - [facility] Kenalog Kenalog 2017-10-30 Completed [facility] (Triamcinolone) (Triamcinolone) 10:53:00 - [facility] Dexamethasone Dexamethasone 2017-10-30 Completed Common S pirit 10:53:00 - [facility] Vital Signs Vital Name Observation Time Observation Value Comments Source Heart rate 2021-06-09 03:17:00 76 /min [facility] Respiratory rate 2021-06-09 03:17:00 18 /min [facility] Oxygen saturation in 2021-06-09 03:17:00 96 /min [facility] Arterial blood by [facility] Pulse oximetry Branch Systolic blood 2021-06-08 23:20:00 153 mm[facility]Hg] [facility] 2021-06-08 23:20:00 94 [facility]Hg[facility] temperature 2021-06-08 23:20:00 36.83 Jasmin [facility] Body weight 2021-06-08 23:20:00 61.236 kg [facility] BMI 2021-06-08 23:20:00 24.69 kg/m2 [facility] height 2020-04-20 14:00:00 61 [in_i] Common S pirit [facility] weight 2020-04-20 14:00:00 131.2 [lb_av] [facility] - [facility] temperature 2020-04-20 14:00:00 99.1 [degF] Common S pirit [facility] bmi 2020-04-20 14:00:00 24.79 kg/m2 Common S pirit [facility] oximetry 2020-04-20 14:00:00 94 % Common S pirit [facility] respiratory rate 2020-04-20 14:00:00 18 /min Comm on Spirit - [facility] blood pressure 2020-04-20 14:00:00 136 mm[Hg] [facility] - systolic [facility] blood pressure 2020-04-20 14:00:00 72 mm[Hg] [facility] - diastolic [facility] Systolic blood 2020-03-18 13:48:00 131 mm[Hg] Univer sity of pressure [facility] Diastolic blood 2020-03-18 13:48:00 67 mm[Hg] Unive rsity of pressure [facility] Heart rate 2020-03-18 13:48:00 72 /min [facility] Respiratory rate 2020-03-18 13:48:00 11 /min [facility] Oxygen saturation in 2020-03-18 13:48:00 100 /min [facility] Arterial blood by [facility] Pulse oximetry [place] Body temperature 2020-03-18 13:31:00 36.78 Jasmin [facility] Body height 2020-03-16 15:00:00 157.5 cm [facility] Body weight 2020-03-16 15:00:00 61.236 kg [facility] BMI 2020-03-16 15:00:00 24.69 kg/m2 [facility] Systolic (mm Hg) 2022-01-20 14:48:00 Surinder rial [place] Diastolic (mm Hg) 2022-01-20 14:48:00 [facility] orial Juan Miguel Heart Rate 2022-01-20 14:48:00 [facility] Juan Miguel Respitory Rate 2022-01-20 14:48:00 Memori al [place] Height 2022-01-20 14:48:00 154.94 cm [facility] Weight 2022-01-20 14:48:00 [facility] BMI Calculated 2022-01-20 14:48:00 Memori al Juan Miguel Systolic (mm Hg) 2021-12-21 14:53:00 Surinder rial [place] Diastolic (mm Hg) 2021-12-21 14:53:00 Mem orial [place] Heart Rate 2021-12-21 14:53:00 Memorial [place] Respitory Rate 2021-12-21 14:53:00 Memori al [place] Height 2021-12-21 14:53:00 152.4 cm [facility] Weight 2021-12-21 14:53:00 [facility] BMI Calculated 2021-12-21 14:53:00 Cindy Decker Procedures Procedure Date / Time Performing Clinician Source Performed COMP. METABOLIC PANEL 2021-06-09 00:38:00 Tree Piña [facility] ([id number]) [facility] CBC WITH DIFF 2021-06-09 00:38:00 Tree Piña [facility] XR CHEST 2 VW 2021-06-09 00:15:00 Tree Piña [facility] CONSENT/REFUSAL FOR 2021-06-08 22:40:02 Doctor Unassigned, [facility] AND TREATMENT Name [facility] NOTICE OF PRIVACY 2021-06-08 22:39:27 Doctor Unassigned, No Univ [facility] PRACTICES Name [facility] COLONOSCOPY (ENDO) 2020-03-18 12:55:46 Ramya Caputo [facility] Breast [facility] [place] procedure<sup>2</sup> Appendectomy<sup>1</sup Memorial [place] > Tubal [facility] Juan Miguel ligation<sup>3</sup> Encounters Start End Encounter Admission Attending Care Care Encounter Source Date/Time Date/Time Type Type Clinicians Facility Department ID 2021-07-27 Outpatient Wilkinson, [facility] [id number] Common 11:05:30 Ramya [id number] [facility] 2021-07-[address] [facility] [id number] Common 10:59:26 Ramya [id number] [facility] 2021-04-29 Outpatient R CHARAFEDDIN [facility] MECCA [id number] Univers 17:46:35 E, MARIO [facility] 2021-04-29 Outpatient R CHARAFEDDIN [facility] MECCA [id number] Univers 17:46:32 [facility] 2022-04-28 2022-04-28 Ambulatory nullFlavo MNA [id number] Memoria 14:30:00 14:30:00 Pre-Reg r Neurology 02 l Sagadahocsakina Bullard 2022-04-28 2022-04-28 Outpatient MHIE MHIE [id number] Memoria 09:30:00 09:30:00 02 jaine Bullard 2022-04-28 2022-04-28 Outpatient Henry, MHMISCHER MHMISCHER [id number] 09:30:00 09:30:00 Dawit 02 Luke 2022-01-20 2022-01-21 Outpatient nullFlavo MNA [id number] Memoria 14:45:00 04:59:59 r Neurology 01 janie Bullard 2022-01-20 2022-01-20 Outpatient Henry, MHMISCHER MHMISCHER [id number] 09:45:00 23:59:59 Dawit 01 Luke 2022-01-20 2022-01-20 Outpatient MHIE MHIE [id number] Memoria 09:45:00 09:45:00 01 janie Bullard 2021-12-21 2021-12-22 Outpatient nullFlavo MNA [id number] Memoria 15:00:00 04:59:59 r Neurology 00 janie Bullard 2021-12-21 2021-12-21 Outpatient Henry, MHMISCHER MHMISCHER [id number] 10:00:00 23:59:59 Dawit 00 Luke 2021-12-21 2021-12-21 Outpatient MHIE MHIE [id number] Memoria 10:00:00 10:00:00 00 janie [place] 2021-06-08 2021-06-08 Emergency X PIÑA, [facility] ERT [id number] Univers 17:20:00 21:19:00 TREE hernández [facility] 2021-06-08 2021-06-08 Emergency Piña, [facility] [id number] Univers 17:20:00 21:19:00 Tree VIRK [id number] [facility] [id number] [facility] [id number] [address] 2021-06-08 2021-06-08 Orders Doctor QUILES [id number] Univers 00:00:00 00:00:00 Only UnassignedELIJAH [id number] ity of [facility] 4.2.7.2.686 Chriss as [id number] [facility] 009 Branch 2020-04-20 2020-04-20 [facility] [id number] Co mmon 00:00:00 00:00:00 VISIT Spirit ESTAB PT - CHI LEVEL 2 [facility] 2020-03-18 2020-03-18 Outpatient R [facility] MECCA [id number] Univers 06:59:00 09:22:00 MARIO Osuna [facility] 2020-03-18 2020-03-18 [facility] [id number] Univers 06:59:00 09:22:00 Encounter Mario osuna [id number] ity of [place] 4[place]2.7.2.686 [place] [id number] [place] [id number] Branch 2020-03-17 2020-03-17 Laboratory Only, Adc Test [facility] [id number]. [id number] Univers 08:58:53 09:13:53 Only Mario Gonzalez 350.1.1 3.10 [place].686 [place] [id number] [facility] 353 Branch 2020-03-17 2020-03-17 Outpatient R [facility] [id number] Univers 08:45:00 08:45:00 MARIO Osuna [facility] 2020-02-27 2020-02-27 Outpatient Brazbryce Paul [id number] Common 10:00:00 10:00:00 t [facility] [address] [facility] 2020-01-19 2020-01-19 Outpatient Brazbryce Haleyt [id number] Common 09:40:00 09:40:00 t [facility] [address] [facility] 2020-01-12 2020-01-12 Outpatient Brazbryce Haleyt [id number] Common 09:40:00 09:40:00 t [facility] [address] [facility] 2019-12-29 2019-12-29 [place] [facility] [id number] Common 14:00:00 14:00:[address] [facility] 2019-12-04 2019-12-04 Outpatient [facility] [id number] Common 10:40:00 10:40:[address] [facility] 2019-11-03 2019-11-03 Outpatient [facility] [id number] Common 11:40:00 11:40:[address] [facility] 2019-10-20 2019-10-20 Outpatient [facility] [id number] Common 14:20:00 14:20:[address] [facility] 2019-10-20 2019-10-20 Outpatient [facility] [id number] Common 08:40:00 08:40:[address] [facility] 2019-09-16 2019-09-16 Outpatient [facility] [id number] Common 11:05:00 11:05:[address] [facility] 2019-08-21 2019-08-21 Outpatient [facility] [id number] Common 10:00:00 10:00:[address] [facility] 2019-08-05 2019-08-05 Outpatient [facility] [id number] Common 13:20:00 13:20:[address] [facility] 2019-07-10 2019-07-10 Outpatient [facility] [id number] Common 14:00:00 14:00:[address] [facility] 2019-06-18 2019-06-18 Outpatient [facility] [id number] Common 09:53:00 09:53:[address] [facility] 2019-06-17 2019-06-17 Outpatient [facility] [id number] Common 14:20:00 14:20:00 t [facility] [address] Sp[address] Road [facility] 2019-06-13 2019-06-13 Outpatient Tera Paul [id number] Common 14:55:00 14:55:00 t [facility] [address] Sp[address] Road [facility] 2019-04-03 2019-04-03 Outpatient Tera Gonzalesbrycet [id number] Common 14:00:00 14:00:00 t [facility] [address] Sp[address] [facility] 2019-02-26 2019-02-26 Outpatient Tera Gonzalesbrycejaret [id number] Common 13:52:00 13:52:00 t Urgent Ur[facility] Care S pirit Care [facility] 2019-02-12 2019-02-12 Outpatient Tera Gonzalesbrycejaret [id number] Common 15:20:00 15:20:00 t [facility] [address] [facility] Results Test Description Test Time Test Comments Results Result Comments Source COMP. METABOLIC PANEL (29855) 2021-06-09 01:23:28 Test Item Value Reference Range Interpretation Comme nts NA (test code = 8292070853) 132 mmol/L 135-145 L K (test code = 0349161521) 4.0 mmol/L 3.5-5.0 CL (test code = 3358981819) 98 mmol/L 98-108 CO2 TOTAL (test code = 3497098897) 28 mmol/L 23-31 AGAP (test code = 0091436995) 2-16 BUN (test code = 3629365946) 14 mg/dL 7-23 GLUCOSE (test code = 2917627572) 101 mg/dL 70-110 CREATININE (test code = 0.74 mg/dL 0.50-1.04 8232653372) TOTAL BILI (test code = 0.5 mg/dL 0.1-1.8 7549303370) CALCIUM (test code = 5895548884) 10.2 mg/dL 8.6-10.6 T PROTEIN (test code = 8726152910) 7.1 g/dL 6.3-8.2 ALBUMIN (test code = 1454051959) 4.3 g/dL 3.5-5.0 ALK PHOS (test code = 8279126178) 72 U/L 34-122 ALTv (test code = 1742-6) 28 U/L 5-35 AST(SGOT) (test code = 5633952185) 34 U/L 13-40 eGFR (test code = 3079303598) mL/min/1.73m2 ANIKA (test code = ANIKA) Association [...] tests). Lab Interpretation (test code = Abnormal 57442-7) [facility] WITH [id number] 01:08:44 Test Item Value Reference Range Interpretation Comments WBC (test code = See_Comment [Automated message] 6690-2) The system [employer] generated this result transmitted ref erence range: 4.30 - 1 1.10 10*3/?L. The re ference range was not u sed to interpret this result as normal/abnor mal. RBC (test code = See_Comment [Automated message] 789-8) The system [employer] generated this result transmitted ref erence range: [...] RDW-SD (test code 43.1 fL 39.0-49.9 = 28807-6) RDW-CV (test code 13.5 % 12.0-15.5 = 788-0) PLT (test code = See_Comment [Automated message] 777-3) The system [employer] generated this result transmitted ref erence range: 166 - 35 8 10*3/?L. The re ference range was not u sed to interpret this result as normal/abnor mal. MPV (test code = 10.1 fL 9.5-12.9 35210-0) NRBC/100 WBC (test See_Comment [Automat ed message] code = 3730467208) The syste m which generated this result transmitted ref erence range: 0.0 - 10 .0 /100 WBCs. The refer ence range was not u sed to interpret this result as normal/abnor mal. NRBC x10^3 (test <0.01 See_Comment [Automated message] code = 2442914421) The syste m which generated this result transmitted ref erence range: 10*3/?L. The reference range was not used to interpr et this result as normal/abnormal . GRAN MAT (NEUT) % 52.3 % (test code = 770-8) IMM GRAN % (test 0.30 % code = 3754054392) LYMPH % (test code 31.0 % = 736-9) MONO % (test code 10.9 % = 5905-5) EOS % (test code = 5.0 % 713-8) BASO % (test code 0.5 % = 706-2) GRAN MAT 3.87 10*3/uL 1.88-7.09 x10^3(ANC) (test code = 5189548991) IMM GRAN x10^3 <0.03 0.00-0.06 (test code = 2957460463) LYMPH x10^3 (test 2.30 10*3/uL 1.32-3.29 code = 731-0) MONO x10^3 (test 0.81 10*3/uL 0.33-0.92 code = 742-7) EOS x10^3 (test 0.37 10*3/uL 0.03-0.39 code = 711-2) BASO x10^3 (test 0.04 10*3/uL 0.01-0.07 code = 704-7) [facility]"
--- NOTE | 2022-05-07 22:25 | RAD REPORT ---
EXAM DESCRIPTION: RAD - Chest Single View - 05/07/2022 10:17 pm CLINICAL HISTORY: MALAISE Chest pain. COMPARISON: Chest Pa And Lat (2 Views) dated 03/13/2019 FINDINGS: Portable technique limits examination quality. The lungs are grossly clear. The heart is normal in size. No displaced fractures. IMPRESSION: No acute intrathoracic process suspected.
[2022-05-07] MEDS ORDERED: MECLIZINE HCL 12.5 MG TAB ONE (22:27)
[2022-05-07] MEDS ORDERED: DIAZEPAM 5 MG TABLET ONE (22:27)
--- NOTE | 2022-05-07 22:29 | RAD REPORT ---
EXAM DESCRIPTION: CT - Head Brain Wo Cont - 05/07/2022 10:21 pm CLINICAL HISTORY: Dizziness, non-specific Headache, drowsiness, dizziness COMPARISON: No comparisons TECHNIQUE: All CT scans are performed using dose optimization technique as appropriate and may inclu de automated exposure control or mA/KV adjustment according to patient size. FINDINGS: No intracranial hemorrhage, hydrocephalus or extra-axial fluid collection.No areas of brai n edema or evidence of midline shift. The paranasal sinuses and mastoids are clear. The calvarium is intact. IMPRESSION: No acute intracranial abnormality.
[2022-05-07 22:49] LABS: Absolute Lymphocytes (CBC) 1.9 K/uL (0.7-4.9); Hematocrit 44.2 % (36.0-45.0); Lymphocytes % 24.8 % (15.3-44.8); MCV 84.2 fL (80-100); MPV 8.3 fL (7.6-11.3); RBC Red Blood Cell Count 5.26 M/uL (3.86-4.86)
[2022-05-07 23:24] LABS: Potassium 3.4 mmol/L (3.5-5.1)
--- NOTE | 2022-05-08 00:44 | EDPHYS ---
Physician Documentation [facility] Name: Tamar Borja Age: 76 yrs Sex: Female : 1945 Arrival Date: 05/07/2022 Time: 20:46 Bed 19 Private MD: ED Physician Tj Jacobs HPI: 05/08 03:15 This 76 yrs old Female presents to ER via Wheelchair with complaints of Headache, kdr Nausea, Dizziness. 03:16 The patient's primarily complaint is headache and dizziness. She states that the kdr headache and dizziness started Sunday morning. Since then she has been too dizzy to eat and has only had a piece of toast on Sunday and Sunday. She denies having any sick contacts and that she has never had any experience like this before. She has vomited a number of times. Patient appears mildly uncomfortable. Onset: The symptoms/episode began/occurred suddenly, 2 day(s) ago. Severity of symptoms: At their worst the symptoms were mild moderate in the emergency department the symptoms are unchanged. The patient has not experienced similar symptoms in the past. The patient has not recently seen a physician. Historical: - Home Meds: 05/07 20:56 levothyroxine oral [Active]; Hydrochlorothiazide Oral [Active]; kd3 - PMHx: 20:56 Asthma; Bronchitis; Hypertensive disorder; kd3 - PSHx: 20:56 brest surgury; kd3 - Immunization history:: Adult Immunizations up to date. - Social history:: Smoking status: unknown. ROS: 05/08 03:16 Constitutional: Negative for fever, chills, and weight loss, Eyes: Negative for injury, kdr pain, redness, and discharge, ENT: Negative for injury, pain, and discharge, Neck: Negative for injury, pain, and swelling, Cardiovascular: Negative for chest pain, palpitations, and edema, Respiratory: Negative for shortness of breath, cough, wheezing, and pleuritic chest pain, Abdomen/GI: Negative for abdominal pain, nausea, vomiting, diarrhea, and constipation, Back: Negative for injury and pain, : Negative for injury, bleeding, discharge, and swelling, MS/Extremity: Negative for injury and deformity, Skin: Negative for injury, rash, and discoloration, Psych: Negative for depression, anxiety, suicide ideation, homicidal ideation, and hallucinations, Allergy/Immunology: Negative for hives, rash, and allergies, Endocrine: Negative for neck swelling, polydipsia, polyuria, polyphagia, and marked weight changes, Hematologic/Lymphatic: Negative for swollen nodes, abnormal bleeding, and unusual bruising. Abdomen/GI: Positive for nausea and vomiting, Secondary to the dizziness. Neuro: Positive for dizziness, headache, weakness. Exam: 03:17 Constitutional: This is a well developed, well nourished patient who is awake, alert, kdr and in no acute distress. 03:17 Constitutional: The patient appears in no acute distress, awake, comfortable, non-toxic, uncomfortable. Vital Signs: 05/07 20:52 BP 168 / 80; Pulse 92; Resp 19; Temp 98.8; Pulse Ox 98% on R/A; Weight 58.51 kg; Height kd3 5 ft. 2 in. (157.48 cm); Pain 5/10; 22:43 BP 132 / 94; Pulse 85; Resp 19; Pulse Ox 98% on R/A; kd3 20:52 Body Mass Index 23.59 (58.51 kg, 157.48 cm) kd3 MDM: 05/08 00:41 Data reviewed: vital signs, nurses notes. ED course: Reevaluated the patient and found kdr her to be without any vertiginous signs at this point. She sat up and despite her Parkinson-like head tremor, she did not have any dizziness or nausea. Her left ear did have some fluid behind it. We will give her Zyrtec and let her follow-up. 00:44 Patient medically screened. kdr 03:17 ED course: Patient was discharged in good condition and happy with the care provided kdr the plan for discharge and follow-up. 05/07 22:06 Order name: Basic Metabolic Panel; Complete Time: 00:40 kd3 05/07 22:06 Order name: CBC with Diff; Complete Time: 00:40 kd3 05/07 22:06 Order name: Troponin HS; Complete Time: 00:40 kd3 05/07 22:06 Order name: XRAY Chest (1 view); Complete Time: 22:56 kd3 05/07 22:06 Order name: CT Head Brain wo Cont; Complete Time: 22:56 kd3 05/07 22:06 Order name: EKG; Complete Time: 22:06 kd3 05/07 22:06 Order name: Cardiac monitoring; Complete Time: 22:40 kd3 05/07 22:06 Order name: EKG - Nurse/Tech; Complete Time: 22:30 kd3 05/07 22:06 Order name: IV Saline Lock; Complete Time: 22:40 kd3 05/07 22:06 Order name: Labs collected and sent; Complete Time: :40 kd3 05/07 22:06 Order name: O2 Per Protocol; Complete Time: 22:30 kd3 05/07 22:06 Order name: O2 Sat Monitoring; Complete Time: 22:30 kd3 Administered Medications: 05/07 22:30 Drug: Antivert (meclizine) 25 mg Route: PO; kd3 05/08 01:04 Follow up: Response: No adverse reaction kd3 05/07 22:30 Drug: Valium (diazepam) 5 mg Route: PO; kd3 05/08 01:04 Follow up: Response: No adverse reaction kd3 01:04 Drug: ZyrTEC - Cetirizine 10 mg Route: PO; kd3 01:04 Follow up: Response: No adverse reaction kd3 Disposition Summary: 05/08/22 00:44 Discharge Ordered Location: Home kdr Problem: new kdr Symptoms: have improved kdr Condition: Stable kdr Diagnosis - Other peripheral vertigo, unspecified ear kdr - Dizziness and giddiness kdr Followup: kdr - With: Private Physician - When: 2 - 3 days - Reason: If symptoms return, Further diagnostic work-up, Recheck today's complaints, Continuance of care, Re-evaluation by your physician Discharge Instructions: - Discharge Summary Sheet kdr - Vertigo, [id number] kdr - Dizziness, [id number] kdr Forms: - Medication Reconciliation Form kdr - Thank You Letter kdr Prescriptions: - Meclizine 25 mg Oral Tablet - take 1 tablet by ORAL route every 8 hours As needed; 15 tablet; Refills: 0, kdr Product Selection Permitted - Valium 2 mg Oral Tablet - take 1 tablet by ORAL route every 8 hours As needed; 20 tablet; Refills: 0, kdr Product Selection Permitted Signatures: Dispatcher [facility] EDTj Wyman MD MD kdr Doucette, Kyli, RN RN kd3 Corrections: (The following items were deleted from the chart) 05/07 20:58 20:56 PSHx: breast augmentation; kd3 kd3
--- NOTE | 2022-05-08 00:44 | ER ---
Nurse's Notes [facility] Name: Tamar Borja Age: 76 yrs Sex: Female : 1945 Arrival Date: 05/07/2022 Time: 20:46 Bed 19 Private MD: Diagnosis: Other peripheral vertigo, unspecified ear;Dizziness and giddiness Presentation: 05/07 20:52 Chief complaint: Patient states: It started Sunday morning. I had a headache and nausea kd3 and my eyes couldn't focus. and I've just felt very very nauseous and dizzy. I had a piece of toast on Sunday and Sunday. I have had no sick contacts. I've never felt anything like this before. Chief complaint: Patient states: I took an allergy pill that has made me feel bad before but not quite like this. but maybe it really got me this time. i may just need to throw them away. Coronavirus screen: Vaccine status: Patient reports being unvaccinated. Ebola Screen: No symptoms or risks identified at this time. Initial Sepsis Screen: Does the patient meet any 2 criteria? No. Patient's initial sepsis screen is negative. Does the patient have a suspected source of infection? No. Patient's initial sepsis screen is negative. Risk Assessment: Do you want to hurt yourself or someone else? Patient reports no desire to harm self or others. Onset of symptoms was May 07, 2022. 20:52 Method Of Arrival: Wheelchair kd3 20:52 Acuity: BING 3 kd3 Triage Assessment: 20:56 Headache History: The patient has had previous headaches and this one is different than kd3 previous episodes. General: Appears uncomfortable, Behavior is calm, cooperative. Pain: Pain currently is 5 out of 10 on a pain scale. Pain began 2-3 days ago. Also complains of decreased appetite, nausea. Neuro: Level of Consciousness is awake, alert, obeys commands, Oriented to person, place, time, situation. Cardiovascular: Patient's skin is warm and dry. Respiratory: Airway is patent Trachea midline Respiratory effort is even, unlabored. GI: Reports nausea, Patient currently denies diarrhea. Historical: - Home Meds: 20:56 levothyroxine oral [Active]; Hydrochlorothiazide Oral [Active]; kd3 - PMHx: 20:56 Asthma; Bronchitis; Hypertensive disorder; kd3 - PSHx: 20:56 brest surgury; kd3 - Immunization history:: Adult Immunizations up to date. - Social history:: Smoking status: unknown. Screenin:59 Abuse screen: Denies threats or abuse. Denies injuries from another. Nutritional kd3 screening: No deficits noted. Tuberculosis screening: No symptoms or risk factors identified. Fall Risk Secondary diagnosis (15 points) impaired mobility. Assessment: 21:22 General: Appears uncomfortable, Behavior is cooperative. Pain: Complains of pain in em6 head Pain does not radiate. Pain currently is 5 out of 10 on a pain scale. Quality of pain is described as pressure. Neuro: Level of Consciousness is awake, alert, obeys commands, Oriented to person, place, time, situation, Reports dizziness, headache frontal area, occipital area, weakness. Cardiovascular: Patient's skin is warm and dry. Respiratory: Airway is patent Respiratory effort is even, unlabored, Respiratory pattern is regular, symmetrical. GI: Abdomen is non-distended, Abd is soft and non tender. : No signs and/or symptoms were reported regarding the genitourinary system. EENT: No signs and/or symptoms were reported regarding the EENT system. Derm: No signs and/or symptoms reported regarding the dermatologic system. Musculoskeletal: Circulation, motion, and sensation intact. 22:43 General: Appears uncomfortable, Behavior is cooperative. Neuro: Level of Consciousness kd3 is awake, alert, obeys commands, Oriented to person, place, time, situation. Respiratory: Airway is patent Trachea midline Respiratory effort is even, unlabored, Respiratory pattern is regular, symmetrical. Vital Signs: 20:52 BP 168 / 80; Pulse 92; Resp 19; Temp 98.8; Pulse Ox 98% on R/A; Weight 58.51 kg; Height kd3 5 ft. 2 in. (157.48 cm); Pain 5/10; 22:43 BP 132 / 94; Pulse 85; Resp 19; Pulse Ox 98% on R/A; kd3 20:52 Body Mass Index 23.59 (58.51 kg, 157.48 cm) kd3 ED Course: 20:46 Patient arrived in ED. ja2 20:56 Triage completed. kd3 20:56 Arm band placed on right wrist. kd3 20:59 Patient has correct armband on for positive identification. kd3 21:10 Tj Jacobs MD is Attending Physician. kdr 21:18 Symone Peña, RN is Primary Nurse. em6 22:18 XRAY Chest (1 view) In Process Unspecified. EDMS 22:23 CT Head Brain wo Cont In Process Unspecified. EDMS 22:40 Inserted saline lock: 20 gauge in left antecubital area, using aseptic technique. Blood kd3 collected. 05/08 01:10 No provider procedures requiring assistance completed. IV discontinued, intact, kd3 bleeding controlled, No redness/swelling at site. Pressure dressing applied. Administered Medications: 05/07 22:30 Drug: Antivert (meclizine) 25 mg Route: PO; kd3 05/08 01:04 Follow up: Response: No adverse reaction kd3 05/07 22:30 Drug: Valium (diazepam) 5 mg Route: PO; kd3 05/08 01:04 Follow up: Response: No adverse reaction kd3 01:04 Drug: ZyrTEC - Cetirizine 10 mg Route: PO; kd3 01:04 Follow up: Response: No adverse reaction kd3 Medication: 01:10 VIS not applicable for this client. kd3 Outcome: 00:44 Discharge ordered by . kdr 01:10 Discharged to home via wheelchair. kd3 01:10 Condition: stable 01:10 Discharge instructions given to patient, family, Instructed on discharge instructions, follow up and referral plans. Demonstrated understanding of instructions, follow-up care. 01:10 Patient left the ED. kd3 Signatures: Dispatcher [employer] EDSD Tj Jacobs MD MD [facility] Shaneka Duarte Kyli, RN RN kd3 Symone Peña, ANA RN em6 Corrections: (The following items were deleted from the chart) 05/07 20:58 20:56 PSHx: breast augmentation; kd3 kd3
[2022-05-08] MEDS ORDERED: CETIRIZINE HCL 5 MG TABLET ONE ×2 (00:51→00:52)
[2022-05-08 01:29] VITALS: TEMP 98.8; O2SAT 98
[2022-05-08 01:45] VITALS: BP 132/94
--- NOTE | 2022-05-08 12:11 | EKG ---
Test Date: 2022-05-07 Test Time: 22:32:01 Sewing Machine Operator Semiautomatic: GENIE MEASUREMENT RESULTS: Intervals: Rate: 88 IL: 166 QRSD: 76 QT: 368 QTc: 445 [place]: P: 66 [place]: 166 QRS: 37 T: 60 INTERPRETIVE STATEMENTS: Normal sinus rhythm Normal ECG Compared to ECG 11/29/2021 04:48:19 First degree AV block no longer present ST (T wave) deviation no longer present Electronically Signed On 05-08-22 12:10:30 MACHINE OR MACHINERY MECHANIC by Daren Park
== END 2022-05-08 01:10 | disposition home or self-care (01) ==
LOC: ER 20:43
DX: H81.399 Other peripheral vertigo, unspecified ear (principal); I10 Essential (primary) hypertension
CPT/HCPCS: 93005; 85025; 80048; 36415; 84484; 70450; 71045; 99284; J8597